=== PATIENT | male | born 1945 | race Caucasian/White ===

== ENCOUNTER 2016-12-19 04:32 | Emergency (ER) | payer OTHER ==
[~2016-12-19] VITALS: Ht 177.8 cm; Wt 76.6 kg
[~2016-12-19 04:32] MED LIST: ATORVASTATIN CA10 MG PO; CLINDAMYCIN HC300 MG PO; FINASTERIDE5 MG PO; LANSOPRAZOLE30 MG PO; LEVOTHYROXINE88 MCG PO; MOTRIN800 MG PO
[2016-12-19 05:51] VITALS: BP 135/83
== END 2016-12-19 05:52 | disposition home or self-care (01) ==
LOC: EME 04:32
DX: S05.01XA Injury of conjunctiva and corneal abrasion without foreign body, right eye, initial encounter (principal); X58.XXXA Exposure to other specified factors, initial encounter; Y93.89 Activity, other specified; K21.9 Gastro-esophageal reflux disease without esophagitis; Z87.891 Personal history of nicotine dependence; Z85.850 Personal history of malignant neoplasm of thyroid; Z88.0 Allergy status to penicillin
CPT/HCPCS: 99281; 99283

== ENCOUNTER → 2017-01-08 | Outpatient (CLI) | payer MEDICARE, OTHER | END | disposition home or self-care (01) | LOC: CDC 10:19 | DX: K22.5 Diverticulum of esophagus, acquired (principal); R00.1 Bradycardia, unspecified; I45.10 Unspecified right bundle-branch block | CPT/HCPCS: 93000 ==

== ENCOUNTER 2017-01-17 05:37 | Day surgery (SDC) | payer OTHER ==
[~2017-01-17] VITALS: Ht 177.8 cm; Wt 77.1 kg
[2017-01-17 06:13] VITALS: BP 129/75
[2017-01-17 10:30] VITALS: BP 143/63
[2017-01-17 11:17] VITALS: BP 143/75
== END 2017-01-17 11:23 | disposition home or self-care (01) ==
LOC: SDC 05:37
PROC: 0DJ08ZZ Inspection of Upper Intestinal Tract, Via Natural or Artificial Opening Endoscopic (ICD-10-PCS; principal; 2017-01-17)
DX: K22.5 Diverticulum of esophagus, acquired (principal); K22.2 Esophageal obstruction; E03.9 Hypothyroidism, unspecified; K21.9 Gastro-esophageal reflux disease without esophagitis; I45.10 Unspecified right bundle-branch block; Z88.0 Allergy status to penicillin; Z87.891 Personal history of nicotine dependence
CPT/HCPCS: J1100; J2250; J2405; J3010

== ENCOUNTER → 2017-03-08 | Outpatient (CLI) | payer OTHER | END | disposition home or self-care (01) | LOC: NUC 08:55 | DX: M88.89 Osteitis deformans of multiple sites (principal) | CPT/HCPCS: 78306; A9503 ==

== ENCOUNTER 2017-06-28 13:50 | Observation (INO) | payer OTHER ==
[~2017-06-28] VITALS: Ht 177.8 cm; Wt 79.5 kg
[2017-06-28 15:07] LABS: HEMATOCRIT 40.9 % (38.0-50.0); HEMOGLOBIN 14.4 G/DL (12.5-16.6); MCH 29.9 PG (29.0-34.0); MCHC 35.2 G/DL (30.0-36.0); MCV 84.9 FL (86-99); PLATELET COUNT 198 K/uL (156-360); RBC DIS.WIDTH-SD 40.1 % (39-53); RED BLOOD COUNT 4.82 M/uL (4.00-5.50); WHITE BLOOD COUNT 12.7 K/uL (4.1-10.2)
[2017-06-28 15:18] LABS: CHLORIDE 109 mEq/L (99-109); POTASSIUM 4.3 mEq/L (3.7-5.4); SODIUM 142 mEq/L (136-147)
[2017-06-28 15:20] LABS: GLUCOSE 85 mg/dL (70-99)
[2017-06-28 15:21] LABS: TOTAL PROTEIN 6.5 g/dL (6.4-8.3)
[2017-06-28 15:22] LABS: TOTAL BILIRUBIN 0.6 mg/dL (0.0-1.0)
[2017-06-28 15:24] LABS: ALKALINE PHOSPHATASE 151 IU/L (3-129); CREATININE 1.1 mg/dL (0.6-1.3); GFR ESTIMATE (CALCULATED) > 59 mL/min/ (58.99-99999)
[2017-06-28 15:25] LABS: UREA NITROGEN (BUN) 19 mg/dL (9-23)
[2017-06-28 15:30] LABS: TROP-I INTERPRETATION NEGATIVE; TROPONIN-I 0.01 ng/mL (0.0-0.30)
[2017-06-28 15:31] LABS: ALT (GPT) 15 IU/L (3-49)
[2017-06-28 15:32] LABS: AST (GOT) 23 IU/L (2-34)
[2017-06-28 18:31] LABS: TROP-I INTERPRETATION NEGATIVE; TROPONIN-I 0.03 ng/mL (0.0-0.30)
[2017-06-28 22:55] VITALS: BP 146/70
[2017-06-28 23:22] LABS: THYROTROPIN (TSH) 2.3 MIU/L (0.4-5.5)
[2017-06-29 01:10] LABS: APPEARANCE CLEAR ((CLEAR)); BILIRUBIN NEGATIVE; BLOOD NEGATIVE; COLOR YELLOW ((YELLOW)); GLUCOSE (STRIP) NEGATIVE; KETONES NEGATIVE; LEUKOCYTES NEGATIVE; NITRITE NEGATIVE; PROTEIN (STRIP) NEGATIVE; UCUL ADDED? NO; UROBILINOGEN 0.2 MG/DL (0.2-1.0)
[2017-06-29 02:43] LABS: HEMATOCRIT 37.6 % (38.0-50.0); HEMOGLOBIN 13.1 G/DL (12.5-16.6); MCHC 34.8 G/DL (30.0-36.0); MCV 86.2 FL (86-99); PLATELET COUNT 174 K/uL (156-360); RBC DIS.WIDTH-CV 13.1 % (11.8-14.6); RBC DIS.WIDTH-SD 40.9 % (39-53); RED BLOOD COUNT 4.36 M/uL (4.00-5.50); WHITE BLOOD COUNT 7.6 K/uL (4.1-10.2)
[2017-06-29 03:04] LABS: TROP-I INTERPRETATION NEGATIVE; TROPONIN-I 0.04 ng/mL (0.0-0.30)
[2017-06-29 03:39] VITALS: BP 131/65
[2017-06-29 06:56] VITALS: BP 135/74
[2017-06-29 09:08] LABS: TROP-I INTERPRETATION NEGATIVE; TROPONIN-I 0.03 ng/mL (0.0-0.30)
[2017-06-29 10:51] LABS: D-DIMER ELISA < 150.00 ng/mLDDU (<230)
[2017-06-29 11:48] VITALS: BP 132/70
[2017-06-29] MEDS ORDERED: ASPIR-LOW81 MG PO (12:43)
== END 2017-06-29 13:18 | disposition home or self-care (01) ==
LOC: EME 13:50 → 5WEST 21:17 → EDOF 21:17 → ENRESERV 21:37 → 5WEST 22:50
PROVIDERS: Emergency Medicine; Hospitalist; Physician Assistant
DX: R06.02 Shortness of breath (principal); I10 Essential (primary) hypertension; D72.829 Elevated white blood cell count, unspecified; E78.5 Hyperlipidemia, unspecified; N40.0 Benign prostatic hyperplasia without lower urinary tract symptoms; E89.0 Postprocedural hypothyroidism; K21.9 Gastro-esophageal reflux disease without esophagitis; R91.1 Solitary pulmonary nodule; R42 Dizziness and giddiness; R53.1 Weakness; R61 Generalized hyperhidrosis; Z82.49 Family history of ischemic heart disease and other diseases of the circulatory system; Z87.891 Personal history of nicotine dependence; Z88.0 Allergy status to penicillin
CPT/HCPCS: 70450; 71046; 80053; 81003; 83880; 84443; 84484; 85027; 85379; 93005; 99281; 99285; G0378; J7030